=== PATIENT | female | born 1945 | race Asian ===

== ENCOUNTER 2019-12-17 13:37 | Emergency (ER) | payer OTHER ==
[~2019-12-17] VITALS: Ht 160 cm; Wt 53.1 kg
[2019-12-17 13:57] VITALS: BP 134/60
[2019-12-17] MEDS ORDERED: BACITRACIN TOP OINT 1 UD PKG TOP ONE (16:15)
[2019-12-17] MEDS ORDERED: LIDOCAINE 1% HCL (LOCAL ANESTH.) INJ 20ML MDV IJ ONE (16:15)
[2019-12-17] MEDS ORDERED: TETANUS-DIPTH-ACEL PERTUSSIS 0.5ML SYR Tdap IM ONE (16:15)
== END 2019-12-17 16:46 | disposition home or self-care (01) ==
LOC: ER 13:41
DX: S01.81XA Laceration without foreign body of other part of head, initial encounter (principal); M79.645 Pain in left finger(s); E11.9 Type 2 diabetes mellitus without complications; I10 Essential (primary) hypertension; Z90.710 Acquired absence of both cervix and uterus; Z88.0 Allergy status to penicillin; W10.9XXA Fall (on) (from) unspecified stairs and steps, initial encounter; Y93.89 Activity, other specified; Y99.8 Other external cause status; Y92.89 Other specified places as the place of occurrence of the external cause
CPT/HCPCS: 12011; 70450; 72125; 90471; 90715; 99285; J2001

== ENCOUNTER 2022-01-20 08:29 | Inpatient (IN) | payer OTHER ==
[~2022-01-20] VITALS: Ht 160 cm; Wt 49.8 kg
[2022-01-20 09:42] LABS: Urine Bacteria NONE SEEN /hpf (None Seen); Urine Blood Negative /uL (Negative); Urine Specific Gravity 1.025 (1.001-1.035); Urine WBC 1 /hpf (0 - 5)
[2022-01-20 09:59] LABS: Basophils # (auto) 0.1 10 ^3/uL (0-0.2); Basophils % (auto) 0.7 % (0.0-2.0); Eosinophils # (auto) 0.3 10 ^3/uL (0-0.8); Eosinophils % (auto) 2.7 % (0.0-7.0); Hemoglobin 13.3 g/dL (12.2-16.2); Lymphocytes # (auto) 1.7 10 ^3/uL (0.4-5.4); Lymphocytes % (auto) 15.8 % (10.0-50.0); Mean Corpuscular Hemoglobin 32.3 pg (28.0-32.0); Mean Corpuscular Hgb Conc. 34.1 g/dL (32.0-36.0); Mean Corpuscular Volume 94.8 fL (80.0-100.0); Monocytes # (auto) 0.6 10 ^3/uL (0-1.3); Monocytes % (auto) 6.1 % (0.0-12.0); Neutrophils # (auto) 7.9 10 ^3/uL (1.6-8.6); Neutrophils % (auto) 74.7 % (37.0-80.0); Red Blood Cells 4.12 10^6/uL (4.0-5.20); Red Cell Distribution Width 12.2 % (11.8-14.3); White Blood Cell 10.5 10^3/uL (4.4-10.8)
[2022-01-20] MEDS ORDERED: SODIUM CHLORIDE 0.9% 1,000 ML IV ONE (10:00)
[2022-01-20 10:11] LABS: Albumin 3.7 g/dL (3.4-5.0); Calcium 9.5 mg/dL (8.5-10.1); Potassium 5.4 mmol/L (3.5-5.1)
[2022-01-20 10:14] LABS: BUN/Creatinine Ratio 29.3; Bilirubin, Total 0.9 mg/dL (0.2-1.0); Total Protein 8.2 g/dL (6.4-8.2)
[2022-01-20] MEDS ORDERED: cloNIDine HCL 0.1 MG TAB PO ONE (10:15)
[2022-01-20] MEDS ORDERED: LORazepam 2MG/ML-1ML VIAL IV ONE (10:15)
[2022-01-20] MEDS ORDERED: DEXTROSE (50%) 50ML SYRG IV ONE (12:30)
[2022-01-20] MEDS ORDERED: SODIUM BICARBONATE 8.4% INJ 50ML SYRINGE IV ONE (12:30)
[2022-01-20] MEDS ORDERED: FUROSEMIDE 20 MG/2 ML VIAL IV ONE (12:30)
[2022-01-20] MEDS ORDERED: ALBUTEROL SULF 2.5 MG/0.5ML(0.5%) NEB SOLN NEB ONE (12:30)
[2022-01-20] MEDS ORDERED: CALCIUM GLUC 1,000mg/50ml-NS 50 ML IV ONE (12:30)
[2022-01-20] MEDS ORDERED: InsuLIN REG 1unit/0.01ml Soln (100units/ml) IV ONE (12:30)
[2022-01-20] MEDS ORDERED: SODIUM ZIRCONIUM CYCL 10 GM PAK PO ONE (12:30)
[2022-01-20] MEDS ORDERED: MORPHINE SULFATE INJECTION 2 MG/ML SYRG IV PRN (14:30)
[2022-01-20] MEDS ORDERED: NITROGLYCERIN 0.4 MG SL TAB SL PRN (14:30)
[2022-01-20] MEDS ORDERED: ONDANSETRON HCL 4 MG/2 ML VIAL IV PRN (14:30)
[2022-01-20] MEDS ORDERED: DEXTROSE (50%) 50ML SYRG IV PRN (14:30)
[2022-01-20] MEDS ORDERED: ACETAMINOPHEN 325 MG TAB PO PRN ×2 (14:30)
[2022-01-20] MEDS: ACCU-CHEK COMFORT CURVE STRIP VI SCH ×2 (18:13→22:06)
[2022-01-20] MEDS: InsuLIN REG 1unit/0.01ml Soln (100units/ml) SC SCH ×2 (18:13→22:00)
[2022-01-20 22:00] VITALS: BP 99/47
[2022-01-20] MEDS ORDERED: LISINOPRIL 20 MG TAB PO SCH (22:00)
[2022-01-21 05:00] VITALS: BP 100/49
[2022-01-21 05:47] LABS: BUN/Creatinine Ratio 23.2; Calcium 9.1 mg/dL (8.5-10.1)
[2022-01-21] MEDS: InsuLIN REG 1unit/0.01ml Soln (100units/ml) SC SCH ×2 (06:49→11:30)
[2022-01-21] MEDS: ACCU-CHEK COMFORT CURVE STRIP VI SCH ×2 (06:49→11:43)
[2022-01-21 09:17] VITALS: BP 127/49
[2022-01-21 12:50] VITALS: BP 102/62
[2022-01-21] MEDS ORDERED: POTASSIUM CHL 20 Meq TABLET PO ONE (14:30)
[2022-01-21] MEDS ORDERED: MECL12.514 PO (15:00)
[2022-01-21 15:35] VITALS: BP 102/62
== END 2022-01-21 17:15 | disposition home or self-care (01) | DRG 149 ==
LOC: ER 08:29 → TELE 14:28 → TELE-WESTW 17:25
PROVIDERS: ADMIT Hospitalist; ATTEND Hospitalist
DX: R42 Dizziness and giddiness (principal); I11.9 Hypertensive heart disease without heart failure; E11.9 Type 2 diabetes mellitus without complications; W18.39XA Other fall on same level, initial encounter; Z88.0 Allergy status to penicillin; Z91.013 Allergy to seafood; Z83.3 Family history of diabetes mellitus; Z90.710 Acquired absence of both cervix and uterus; Y93.89 Activity, other specified; Y92.89 Other specified places as the place of occurrence of the external cause; Y99.8 Other external cause status; Z79.84 Long term (current) use of oral hypoglycemic drugs; E87.5 Hyperkalemia
CPT/HCPCS: 36415; 70450; 70551; 80048; 80053; 81001; 82962; 84484; 85025; 93005; 93306; 94644; 96361; 96365; 96375; 99291; G0378; J2405

== ENCOUNTER 2024-01-10 09:13 | Emergency (ER) | payer OTHER ==
[~2024-01-10] VITALS: Ht 160 cm; Wt 52.5 kg
[~2024-01-10 09:13] MED LIST: MECL12.586 PO
[2024-01-10 14:01] VITALS: BP 113/34; PULSE 72; RESP 18; TEMP 97.7; O2SAT 98
== END 2024-01-10 14:02 | disposition home or self-care (01) ==
LOC: ER 09:13
DX: S05.11XA Contusion of eyeball and orbital tissues, right eye, initial encounter (principal); E11.9 Type 2 diabetes mellitus without complications; I10 Essential (primary) hypertension; Z90.710 Acquired absence of both cervix and uterus; W18.09XA Striking against other object with subsequent fall, initial encounter; Y93.89 Activity, other specified; Y92.89 Other specified places as the place of occurrence of the external cause; Y99.8 Other external cause status
CPT/HCPCS: 70450; 70480